=== PATIENT | male | born 1935 | race Caucasian/White ===

== ENCOUNTER 2022-06-15 14:14 | Outpatient (CLI) | payer MEDICARE, SELFPAY ==
[2022-06-15 19:15] LABS: Alanine Aminotransferase 15 U/L (6-50); Albumin Level 4.3 g/dL (3.5-5.1); Alkaline Phosphatase 45 U/L (38-126); Anion Gap 4 mmol/L (8-16); Aspartate Amino Transferase 32 U/L (17-59); Bilirubin,Total 0.9 mg/dL (0.2-1.3); Blood Urea Nitrogen 27 mg/dL (9-20); Calcium 10.1 mg/dL (8.4-10.2); Carbon Dioxide 30 mmol/L (22-30); Chloride 103 mmol/L (98-107); Estimated Glomerular Filt Rate 58; Glucose 81 mg/dL (65-110); Potassium 4.4 mmol/L (3.4-5.0); Sodium 137 mmol/L (137-145)
== END 2022-06-15 14:15 | disposition home or self-care (01) ==
LOC: ANHGOSHLAB 14:16
PROVIDERS: PCP Family Medicine; Visit Provider Family Medicine
DX: E78.5 Hyperlipidemia, unspecified (principal)
CPT/HCPCS: 36415; 80053

== ENCOUNTER 2023-09-28 07:00 | Outpatient (NON) | payer MEDICARE, SELFPAY | END 2023-09-28 07:01 | disposition home or self-care (01) | PROVIDERS: PCP Family Medicine; Visit Provider Internal Medicine Gastroenterology | DX: Z12.11 Encounter for screening for malignant neoplasm of colon (principal) | CPT/HCPCS: 88305 ==

== ENCOUNTER 2023-09-28 10:43 | Day surgery (SDC) | payer MEDICARE, SELFPAY ==
[2023-08-17 13:59] VITALS: BMI 25.0
--- NOTE | 2023-09-27 15:17 | WPDANESEPPF ---
Anes - Initial Pre Proc Eval Procedure: Operation Date: 09/28/23 12:30 Proposed Procedures p Screening Colonoscopy - Rashad Kumar MD Date/Time: 09/27/23 15:17 Surgeon: Rashad Kumar MD Pre Op Diagnosis: Neoplasm Screening Patient Data Age: 88 Gender: M Height: 1.78 m Weight: 79 kg Allergies Allergy/AdvReac Type Severity Reaction Status Date / Time No Known Allergies Allergy Verified 09/28/23 11:07 Home Medications Medication Instructions Recorded Confirmed Type dxdzcoxbqlqy-yst-ejbfp acid-vit 1 tablet PO DAILY 10/21/19 09/28/23 History K-lycop 400 mcg-20 mcg-370 mcg tablet (One-A-Day Men's 50 Plus (with vitamin K)) cholecalciferol (vitamin D3) 50 50 mcg PO DAILY 06/15/22 09/28/23 History mcg (2,000 unit) tablet cpfyywrh-ich-mlukh3 250 mg-dha 90 1 cap PO DAILY 06/15/22 09/28/23 History mg-epa 160 kl-loky-ylsh-zeax capsule (Ocuvite Adult 50 Plus) lisinopril 20 1 tablet PO DAILY #90 tabs 04/10/23 09/28/23 Rx mg-hydrochlorothiazide 12.5 mg tablet allopurinol 300 mg tablet 150 mg PO DAILY #90 tabs 08/07/23 09/28/23 Rx pravastatin 40 mg tablet 40 mg PO QHS #90 tabs 08/10/23 09/28/23 Rx sodium,potassium,mag sulfates 17.5 See Rx Instructions PO .COMPLEX 08/17/23 09/28/23 Rx gram-3.13 gram-1.6 gram oral soln #354 mL (Suprep Bowel Prep Kit) Patient hx anesthesia problems: none Family hx anesthesia problems: none Results Review: All pre-operative results and documents have been reviewed as part of the pre-operative evaluation. [facility], [facility] Past Medical History Medical History Dyslipidemia Elbow fracture 194 Essential (primary) hypertension Gout Sick sinus syndrome Sinus bradycardia Venous insufficiency of right lower extremity Vitamin D deficiency Surgical History Surgical History History of open reduction and internal fixation (ORIF) procedure Social History Social History Smoking status: Former smoker Smoking end date: 11/27/94 Alcohol intake: current Drinks per week: 3 Alcohol use details: 1 glass of wine or beer consumed occasionally Substance use: never Substance use type: does not use Lack of Transportation: No Lack of Food: Never True Current Housing: I Have Housing Concerned About Future Housing: No Difficulty Paying Gas/Electric Bills: No Difficulty Paying for Meds: No Currently Unemployed: No Education: High School Diploma/GED Living arrangements: with family Additional living arrangements comments: Occupation/Education: retired Gender identity (if verbalized by the patient): Male Sexual Orientation (if Verbalized by the Patient): Straight or Heterosexual Spiritual care concerns: No Anes - Eval Final PreProcedure Day of Procedure 09/27/23 15:17 Patient weight: normal Heart: regular rate and rhythm Lungs: clear to auscultation and normal air movement Airway: Mallampati scale class II Neurological: alert and oriented Last oral intake: >/= 8 hours ASA classification: III Emergent: no Anesthetic plan: proceed Anesthesia type and monitoring: general GIVS and standard monitoring Results Review: All pre-operative results and documents have been reviewed as part of the pre-operative evaluation. Informed Consent: The patient's anesthetic plan and its attendant risks and benefits were discussed with the patient/family/POA. Questions were solicited and answers provided to the satisfaction of the patient/family/POA.
[2023-09-28 11:08] VITALS: BP 168/96; PULSE 65; RESP 20; TEMP 37.1; O2SAT 100
[2023-09-28] MEDS: LACTATED RINGERS 1,000 ML 150 ML IV CONT (11:17)
--- NOTE | 2023-09-28 11:24 | PM.HPGS ---
History of Present Illness History of Present Illness Consent: Risks, benefits, and alternatives have been discussed and questions answered. Patient agrees to proceed with procedure. Chief complaint: Neoplasm Screening Narrative: Kody Hurtado is a 88 year old male Presents for screening colonoscopy on referral from Dr. Schaefer. Patient has a history of adenomatous colon polyp in 2014. Patient reports his current weight appetite and bowel movements are normal. Patient's family history is significant that his mother had colon cancer. Is any current bowel problems. He has no bleeding. Review of Systems Review of Systems: Review of systems is noncontributory. [facility] Past Medical History Medical History Dyslipidemia Elbow fracture 194 Essential (primary) hypertension Gout Sick sinus syndrome Sinus bradycardia Venous insufficiency of right lower extremity Vitamin D deficiency Surgical History Surgical History History of open reduction and internal fixation (ORIF) procedure Social History Social History Smoking status: Former smoker Smoking end date: 11/27/94 Alcohol intake: current Drinks per week: 3 Alcohol use details: 1 glass of wine or beer consumed occasionally Substance use: never Substance use type: does not use Lack of Transportation: No Lack of Food: Never True Current Housing: I Have Housing Concerned About Future Housing: No Difficulty Paying Gas/Electric Bills: No Difficulty Paying for Meds: No Currently Unemployed: No Education: High School Diploma/GED Living arrangements: with family Additional living arrangements comments: Occupation/Education: retired Gender identity (if verbalized by the patient): Male Sexual Orientation (if Verbalized by the Patient): Straight or Heterosexual Spiritual care concerns: No Meds Home Medications and Allergies Home Medications Medication Instructions Recorded Confirmed Type tzrrtchrrbyo-bex-lfruo acid-vit 1 tablet PO DAILY 10/21/19 09/28/23 History K-lycop 400 mcg-20 mcg-370 mcg tablet (One-A-Day Men's 50 Plus (with vitamin K)) cholecalciferol (vitamin D3) 50 50 mcg PO DAILY 06/15/22 09/28/23 History mcg (2,000 unit) tablet etrdnwwg-gks- 250 mg-dha 90 1 cap PO DAILY 06/15/22 09/28/23 History mg-epa 160 hv-lyva-iutw-zeax capsule (Ocuvite Adult 50 Plus) lisinopril 20 1 tablet PO DAILY #90 tabs 04/10/23 09/28/23 Rx mg-hydrochlorothiazide 12.5 mg tablet allopurinol 300 mg tablet 150 mg PO DAILY #90 tabs 08/07/23 09/28/23 Rx pravastatin 40 mg tablet 40 mg PO QHS #90 tabs 08/10/23 09/28/23 Rx sodium,potassium,mag sulfates 17.5 See Rx Instructions PO .COMPLEX 08/17/23 09/28/23 Rx gram-3.13 gram-1.6 gram oral soln #354 mL (Suprep Bowel Prep Kit) Allergies Allergy/AdvReac Type Severity Reaction Status Date / Time No Known Allergies Allergy Verified 09/28/23 11:07 Vital Signs Vital Signs - 24 hr 09/28/23 11:08 Temperature 98.7 F Pulse Rate 65 Respiratory Rate 20 Blood Pressure 168/96 H Pulse Oximetry 100 Oxygen Delivery Room Air Exam Narrative: Physical exam reveals patient and stable. HEENT exam is unremarkable. Patient is anicteric. Lungs are clear to auscultation and to percussion. Heart is without murmur or extra sounds. Abdomen bowel sounds are present soft nontender with no organomegaly. Digital external rectal exam is normal. Assessment and Plan Assessment and plan (1) Colon cancer screening: Code(s): Z12.11 - Encounter for screening for malignant neoplasm of colon Status: Acute Assessment and Plan: Patient presents for screening colonoscopy on referral from primary care service. He does have a history of adenomatous colon polyp in 2014.
[2023-09-28 12:00] VITALS: BP 97/58; PULSE 35; RESP 16; O2SAT 98
[2023-09-28 12:10] VITALS: BP 97/58; PULSE 40; RESP 16; O2SAT 98
[2023-09-28 12:20] VITALS: BP 169/55; PULSE 35; RESP 16; O2SAT 100
--- NOTE | 2023-09-28 12:44 | WPDANESPN ---
Anes - Prog Note Post-Op Date/Time: 09/28/23 12:44 Cardiovascular status: normal Respiratory status: normal Airway patency: baseline Mental status: baseline Post-Op hydration status: normal Vital Signs: Last Vital Signs Temp 37.1 C 09/28/23 11:08 Pulse 40 L 09/28/23 12:10 Resp 16 09/28/23 12:10 BP 97/58 L 09/28/23 12:10 Pulse Ox 98 09/28/23 12:10 O2 Del Method Room Air 09/28/23 12:10 Pain Score (VAS): 0 I/O: Intake & Output 09/27/23 09/28/23 09/28/23 23:59 07:59 15:59 Intake Total 400 Balance 400 Post-procedural complaints: none Patient Feedback: Patient satisfied with anesthetic care. Other Findings: Patient vital signs back to baseline. Patient denies nausea and vomiting. Patient's pain under control. Patient OK for discharge.
--- NOTE | 2023-09-28 12:55 | SUR.PHASEII ---
Addendum entered by Roxanna Vale RN 09/28/23 13:01: change....s/s to watch for with dizziness and to follow up... Original Note: [id number] patient returned to recovery on left side. no complaints. retrieved son from waiting room. dr came in to talk to patient and son about results. patient's heart rate varied from 30-65. pulse palpable on right wrist to verify monitor. pulse feels irregular and slow. reported to anes who confirmed that on their desk monitor intra procedure his rhythm was irregular. no afib noted. patient has a history of irregular rhythem per anes. during patient's time in recovery pulse continued to vary from 30s-60s with good pleth wave form. discussed and education given at length with son on s/s to watch for with dizziness and no follow up with primary doctor right away. patient reports to me in private that he does not have issues at home or c/o of s/s of dizzy or light headedness. patient was transported via wheel chair to son's vehicle safely.
== END 2023-09-28 12:55 | disposition home or self-care (01) ==
PROVIDERS: PCP Family Medicine; Visit Provider Internal Medicine Gastroenterology
PROC: 0DJD8ZZ Inspection of Lower Intestinal Tract, Via Natural or Artificial Opening Endoscopic (ICD-10-PCS; CPT 45378; principal; 2023-09-28 12:30)
DX: Z86.010 Personal history of colon polyps (principal); D12.2 Benign neoplasm of ascending colon; K57.30 Diverticulosis of large intestine without perforation or abscess without bleeding; K64.8 Other hemorrhoids
CPT/HCPCS: 45385

== ENCOUNTER → 2024-09-17 09:33 | Outpatient (REF) | payer MEDICARE, SELFPAY | LOC: ANHLAB 09:33 | PROVIDERS: PCP Family Medicine; Visit Provider Plastic Surgery | DX: L72.0 Epidermal cyst (principal) | CPT/HCPCS: 88305 ==

== ENCOUNTER 2025-04-18 08:05 | Outpatient (CLI) | payer MEDICARE, SELFPAY ==
--- OUTSIDE RECORDS SUMMARY | 2025-04-18 08:11 | XMS_ITS | Clinical Summary ---
Author Organization [facility] Address [address] [place] [address] Care Team Providers Care Masonry Instructor Name Role Phone Unavailable Primary Care Provider Unavailabl e Source Comments [facility],non-owned Affiliates and Associated Physician Practices is amultiple site organization consisting of ambulatory clinics and hospital sitesin [place], [place], [place] and [place]. This disclosure is being madepursuant to the Care Everywhere program and may not contain all information available regarding this patient. Last updated 18.[facility] Immunizations Immunization Administration Dates Next Due INFLUENZA VACCINE, HIGH-DOSE , QUADR. (FLUZONE HIGH-DOSE QUADRIVALENT; 65Y+), 0.7 ML (HD-IIV4) 09/14/2020 Social History Tobacco Use Types Packs/Day Years Used Date Smoking Tobacco: Never Assessed Sex and Gender Information Value Date Recorded Sex Assigned at Not on file Legal Sex Male 2:13 PM CDT Gender Identity Not on file Sexual Orientation Not on file Plan of Treatment Health Maintenance Due Date Last Done Comments DTAP/TDAP/TD VACCINES (1 - Tdap) 1955 PNEUMOCOCCAL VACCINE 50+ (1 of 1 - PCV) 1986 ZOSTER VACCINE (1 of 2) 1986 Respiratory Syncytial Virus (RSV) Vaccine Pt: or over 60 yrs (1 - 1-dose 75+ series) 2011 COVID-19 VACCINE ( - 2023-2 5 season) 2024 DEPRESSION SCREENING 11/27/2024 MEDICARE AWV CALENDAR YEAR 2024 INFLUENZA VACCINE (Season Ended) 2025 09/14/20 20 HEPATITIS B VACCINE Aged Out No longe r eligible based on patient's age to complete this topic HIB VACCINE Aged Out No longer eligi ble based on patient's age to complete this topic HPV VACCINE Aged Out No longer eligi ble based on patient's age to complete this topic MENINGOCOCCAL (Group B) VACC INE SHARED DECISION-MAKING Aged Out No longer eligibl e based on patient's age to complete this topic MENINGOCOCCAL GROUPS A/C/Y/W VACCINE Aged Out No longer eligible b ased on patient's age to complete this topic Insurance [facility] MANAGED MEDICARE ADV SELF PAY NO INSURANCE Member Subscriber Plan / Payer (Ef fective for All Dates) Name:Galindo Hurtado Member ID:Not on file Relation to Subscriber:Not on file Name:GALINDO HURTADO Subscriber ID:Not on file (Home) Address: [address] [place] [address] Payer ID:Not on file Group ID:Not on file Type:Self Pay Address: [facility] MANAGED MEDICARE ADV [employer] MANAGED MEDICARE ADV * Guarantor: GALINDO HURTADO Account Type Relation to Patient Date of Phone Billing Address Personal/Family Spouse
[2025-04-18 12:24] LABS: Basophils Absolute Auto 0.1 K/mm3 (0.0-0.1); Basophils Percent Auto 0.9 % (0.2-1.2); Eosinophils Absolute Auto 0.3 K/mm3 (0-0.3); Hematocrit 39.1 % (42.0-52.0); Hemoglobin 12.7 g/dL (14.0-18.0); Immature Granulocyte Absolute 0.03 K/mm3 (0.00-0.031); Immature Granulocyte Percent A 0.5 % (0-0.5); Lymphocytes Absolute Auto 1.72 K/mm3 (0.9-3.2); Lymphocytes Percent Auto 25.9 % (18.3-44.2); Mean Corpuscular HGB Conc 32.5 g/dl (32-36); Mean Corpuscular Hemoglobin 31.1 pg (26-34); Mean Corpuscular Volume 95.6 fl (80-100); Mean Platelet Volume 11.6 fl (7.4-10.4); Monocytes Absolute Auto 0.5 K/mm3 (0.1-0.6); Monocytes Percent Auto 7.2 % (2.6-8.5); Neutrophils Percent Auto 60.5 % (45.5-73.1); Platelet Count Result 140 k/mm3 (150-375); Red Blood Count 4.09 M/mm3 (4.6-6.20); Red Cell Distribution Width 14.6 % (11.5-14.5); White Blood Count 6.7 K/mm3 (4.5-10.0)
[2025-04-18 12:46] LABS: Alanine Aminotransferase 25 U/L (6-50); Albumin Level 4.2 g/dL (3.5-5.1); Alkaline Phosphatase 50 U/L (38-126); Anion Gap 7 mmol/L (4-12); Aspartate Amino Transferase 60 U/L (17-59); Bilirubin,Total 0.9 mg/dL (0.2-1.3); Blood Urea Nitrogen 41 mg/dL (9-20); Carbon Dioxide 28 mmol/L (22-30); Chloride 105 mmol/L (98-107); Cholesterol 138 mg/dL (0-200); Estimated Glomerular Filt Rate 55; Glucose 72 mg/dL (65-110); HDL Direct 54 mg/dL; Potassium 4.3 mmol/L (3.4-5.0); Sodium 140 mmol/L (137-145); Triglycerides 74 mg/dL (<150)
[2025-04-18 12:59] LABS: Vitamin D 25 Hydroxy 65.3 ng/mL
[2025-04-18 13:00] LABS: LDL Cholesterol Direct 54 mg/dL
[2025-04-18 13:25] LABS: Hemoglobin A1C 5.3 % (<5.7)
[2025-04-18 14:43] LABS: Free T4 Free Thyroxine Reflex 1.16 ng/dL (0.78-2.19)
== END 2025-04-18 08:06 | disposition home or self-care (01) ==
LOC: ANHGOSHLAB 08:06
PROVIDERS: PCP Family Medicine; Visit Provider Family Medicine
DX: E78.5 Hyperlipidemia, unspecified (principal); I10 Essential (primary) hypertension; M10.00 Idiopathic gout, unspecified site; D69.6 Thrombocytopenia, unspecified; Z00.00 Encounter for general adult medical examination without abnormal findings; R73.9 Hyperglycemia, unspecified; E53.8 Deficiency of other specified B group vitamins; E55.9 Vitamin D deficiency, unspecified
CPT/HCPCS: 36415; 80053; 80061; 82306; 82607; 83036; 84439; 84443; 84480; 84550; 85025

== ENCOUNTER 2025-10-24 12:32 | Emergency (ER) | payer MEDICARE, SELFPAY ==
[2025-10-24 12:43] VITALS: BP 175/80; PULSE 65; RESP 16; TEMP 36.3; O2SAT 99
--- NOTE | 2025-10-24 12:47 | ED_ITS ---
HPI - URI/Sore Throat General Chief Complaint: Upper Respiratory Infection Stated Complaint: Sinus Infection Symptoms Time Seen by Provider: 10/24/25 12:45 Source: patient Mode of arrival: ambulatory Limitations: no limitations History of Present Illness HPI Narrative: Abner is a an 89-year-old male patient presenting to the clinic today with complaints of comes sinus congestion, sinus pressure, sneezing, some chest congestion, and cough. He reports he is coughing up some green phlegm. Symptoms have been going on for over 1 week. Denies any chest pain or shortness of breath. No fevers, chills, body aches. MD elicited complaint: sore throat and nasal congestion Related Data Home Medications ?Medication ?Instructions ?Recorded ?Confirmed ?Last Taken ?Type ertphwyxjgwp-pfs-fadvi acid-vit 1 tablet PO DAILY 09/2804/17/25 09/05/23 History K-lycop 400 mcg-20 mcg-370 mcg tablet (One-A-Day Men's 50 Plus (with vitamin K)) zwlgrhvs-vuc- 250 mg-dha 90 1 cap PO DAILY 06/1504/17/25 09/05/23 History mg-epa 160 yd-anqi-wshe-zeax capsule (Ocuvite Adult 50 Plus) Allergies Allergy/AdvReac Type Severity Reaction Status Date / Time No Known Allergies Allergy Verified 10/24/25 12:47 Review of Systems Review of Systems: Pertinent positives per HPI. Patient denies any fever, chills, rash, visual changes, dizziness, shortness of breath, chest pain, palpitations, nausea, vomiting, diarrhea, constipation, abdominal pain, or any urinary issues. [facility] Past Medical History Medical History Flexion deformity, left elbow Venous insufficiency of right lower extremity Vitamin D deficiency Sinus bradycardia Elbow fracture 1943 Gout Dyslipidemia Essential (primary) hypertension Social History Social History Smoking status: Former smoker (< 5 pack years) Smoking end date: 11/27/94 Alcohol intake: current Drinks per week: 3 Alcohol use details: 1 glass of wine or beer consumed occasionally Substance use: never Substance use type: does not use Lack of Transportation: No Lack of Food: Never True Current Housing: I Have Housing Concerned About Future Housing: No Difficulty Paying Gas/Electric Bills: No Difficulty Paying for Meds: No Currently Unemployed: No Education: High School Diploma/GED Living arrangements: with family Additional living arrangements comments: Occupation/Education: retired Gender identity (if verbalized by the patient): Male Sexual Orientation (if Verbalized by the Patient): Straight or Heterosexual Spiritual care concerns: No Comments At the time of my signature, I reviewed and agree with the nursing past medical, surgical, social, and family history. There is no relevant family history pertinent to the patient complaint. Exam Narrative: General: Well-developed, well nourished, in no apparent distress Head: Normocephalic, atraumatic Eyes: Pupils equally round and reactive to light bilaterally, EOM intact, sclera and conjunctive clear, no discharge, lids normal Ears: TMs intact and congested, ear canals clear, no drainage, grossly hearing normal. Nose: Nares patent, green nasal discharge, moderate inflammation, maxillary sinus tenderness. Mouth: Oral pharynx without lesions or masses, good dentition, MMM. Postnasal drip Neck: Supple, trachea midline, no enlargement of anterior or posterior cervical nodes, no thyroid masses or goiter palpable. Cardio: Regular rate and rhythm, s1 and s2 normal, no murmur appreciated. Resp: Clear to auscultation bilaterally, no rhonchi, rales, wheezing or rubs Course Course Emergency Course: Portions of this record may have been created with voice recognition software. Level of Care: Express Care Visit Vital Signs Vital signs: Vital Signs Temperature 36.3 C L 10/24/25 12:43 Pulse Rate 65 10/24/25 12:43 Respiratory Rate 16 10/24/25 12:43 Blood Pressure 175/80 H 10/24/25 12:43 Pulse Oximetry 99 10/24/25 12:43 Temperature 36.3 C L 10/24/25 12:43 Pulse Rate 65 10/24/25 12:43 Respiratory Rate 16 10/24/25 12:43 Blood Pressure 175/80 H 10/24/25 12:43 Pulse Oximetry 99 10/24/25 12:43 Vital signs reviewed MDM - URI/Sore Throat MDM Narrative Medical decision making narrative: At the time of visit patient is resting comfortably on the exam table. Patient appears to be nontoxic. Complaints of comes sinus congestion, sinus pressure, sneezing, some chest congestion, and cough. He reports he is coughing up some green phlegm. Symptoms have been going on for over 1 week. Denies any chest pain or shortness of breath. No fevers, chills, body aches. On exam patient has bilateral TMs intact, mild bulging, and congested, green nasal drainage with moderate anterior turbinate inflammation, maxillary tenderness, oropharynx red with postnasal drip, lung sounds are clear, heart rates regular rate rhythm. Plan: I suspect patient has acute bacterial rhinosinusitis. Prescription for Augmentin was sent to the pharmacy. Supportive measures were discussed with the patient and they voiced understanding discharge instructions and agrees to treatment plan. Return precautions reviewed Differential Diagnosis Differential diagnosis: Likely upper respiratory infection, otitis media, sinusitis, viral infection, bronchitis, influenza, pharyngitis and other (COVID) Discharge Plan Discharge Clinical Impression: Acute bacterial rhinosinusitis Patient Disposition: Home Condition: Stable Instructions: Antibiotic Form, Sinusitis (ED) Additional Instructions: Take prescription medications only as prescribed-Augmentin Increase fluids and stay well hydrated May take Tylenol or motrin as directed on bottle for pain/fever May use Flonase 1 spray in each nare daily May take OTC antihistamines such as Zyrtec or Claritin daily as directed on bottle May apply Vicks vapor rub to chest to open sinuses Sinus rinses for congestion Cepacol spray, cough drops, throat lozenges, warm tea with honey/lemon, gargle salt water to soothe throat BRAT diet for diarrhea Clear liquids x 24 hours then advance as tolerated for nausea/vomiting Go to the ED if you develop a worsening in your condition- high fever not controlled by Tylenol or Motrin, dehydration, weakness, lethargy, shortness of breath, or chest pain. Follow up with your PCP in 3-5 days if symptoms persist. Patient Language: Moldovan Prescriptions: New amoxicillin-pot clavulanate 875-125 mg tablet 1 tablet PO Q12H 7 Days Qty: 14 0RF No Action Ocuvite Adult 50 Plus 250 mg (90 mg-160 mg) capsule 1 cap PO DAILY atorvastatin 40 mg tablet 40 mg PO QHS Qty: 90 2RF lisinopril-hydrochlorothiazide 20-12.5 mg tablet 2 tablet PO DAILY Qty: 180 2RF One-A-Day Men's 50 Plus(vit K) 400-20-370 mcg tablet 1 tablet PO DAILY Follow-up/Referrals: Freda Schaefer MD [Primary Care Provider, [facility]] Time of Disposition: 12:47 Quality NIHSS Nursing Documentation ED NIHSS nursing documentation: reviewed/agree
== END 2025-10-24 12:50 | disposition home or self-care (01) ==
PROVIDERS: Emergency Provider Nurse Practitioner Family; PCP Family Medicine
DX: J01.90 Acute sinusitis, unspecified (principal); I10 Essential (primary) hypertension; E78.5 Hyperlipidemia, unspecified; M10.9 Gout, unspecified; Z87.891 Personal history of nicotine dependence
CPT/HCPCS: 99213; G0463

== ENCOUNTER 2025-11-03 15:25 | Outpatient (CLI) | payer MEDICARE, SELFPAY ==
[2025-11-03 18:52] LABS: Hematocrit 39.7 % (42.0-52.0); Hemoglobin 13.1 g/dL (14.0-18.0); Immature Granulocyte Percent A 0.2 % (0-0.5); Immature Platelet Fraction Pct 5.5 % (0.9-11.2); Lymphocytes Absolute Auto 1.66 K/mm3 (0.9-3.2); Mean Corpuscular HGB Conc 33.0 g/dl (32-36); Mean Corpuscular Hemoglobin 30.7 pg (26-34); Mean Corpuscular Volume 93.0 fl (80-100); Nucleated Red Blood Cells Absolute Auto 0.000 K/mm3 (0.0-0.012); Nucleated Red Blood Cells Perc 0.0 % (0.0-0.2); Platelet Count Result 129 k/mm3 (150-375); Red Blood Count 4.27 M/mm3 (4.6-6.20); White Blood Count 8.3 K/mm3 (4.5-10.0)
[2025-11-03 19:03] LABS: Alanine Aminotransferase 23 U/L (6-50); Albumin Level 4.3 g/dL (3.5-5.1); Alkaline Phosphatase 46 U/L (38-126); Anion Gap 5 mmol/L (4-12); Aspartate Amino Transferase 31 U/L (17-59); Bilirubin,Total 0.7 mg/dL (0.2-1.3); Blood Urea Nitrogen 61 mg/dL (9-20); Calcium 10.7 mg/dL (8.4-10.2); Carbon Dioxide 28 mmol/L (22-30); Chloride 107 mmol/L (98-107); Estimated Glomerular Filt Rate 43; Glucose 90 mg/dL (65-110); Potassium 5.1 mmol/L (3.4-5.0); Sodium 140 mmol/L (137-145); Total Protein 7.0 g/dL (6.3-8.2)
[2025-11-03 19:22] LABS: Iron 59 ug/dL (49-181)
[2025-11-03 19:34] LABS: Percent Iron Saturation 24 % (20-50)
[2025-11-03 20:02] LABS: Thyroid Stimulating Hormone Reflex 2.570 uIU/mL (0.465-4.68)
[2025-11-03 20:06] LABS: Ferritin 136.00 ng/mL (11.1-264)
== END 2025-11-03 15:26 | disposition home or self-care (01) ==
LOC: ANHGOSHLAB 15:26
PROVIDERS: PCP Family Medicine; Visit Provider Family Medicine
DX: D64.9 Anemia, unspecified (principal); I10 Essential (primary) hypertension
CPT/HCPCS: 36415; 80053; 82728; 83540; 83550; 84443; 85025; 85055

== ENCOUNTER 2025-11-11 11:21 | Outpatient (CLI) | payer MEDICARE, SELFPAY ==
--- OUTSIDE RECORDS SUMMARY | 2025-11-11 13:42 | XMS_ITS | Clinical Summary ---
Author Organization [facility] Address [address] [place] [address] Care Team Providers Care Machine Setter And Repairer Name Role Phone Unavailable Primary Care Provider Unavailabl e Source Comments [facility],non-owned Affiliates and Associated Physician Practices is amultiple site organization consisting of ambulatory clinics and hospital sitesin [place], [place], [place] and [place]. This disclosure is being madepursuant to the Care Everywhere program and may not contain all information available regarding this patient. Last updated 18.[facility] Immunizations Immunization Administration Dates Next Due INFLUENZA [...] yrs (1 - 1-dose 75+ series) 2011 DEPRESSION SCREENING 11/27/2024 MEDICARE AWV CALENDAR YEAR 2024 COVID-19 VACCINE ( - 2024-2 6 season) 2025 INFLUENZA VACCINE (#1) 2025 09/14/2020 HEPATITIS B VACCINE Aged Out No longe [...] patient's age to complete this topic Insurance [facility] MANAGED MEDICARE ADV SELF PAY NO INSURANCE Member Subscriber Plan / Payer (Ef fective for All Dates) Name:Galindo Hurtado Abimael Member ID:Not on file Relation to Subscriber:Not on file Name:GALINDO HURTADO Subscriber ID:Not on file (Home) Address: [address] [place] [address] Payer ID:Not on file Group ID:Not on file Type:Self Pay Address: [facility] MANAGED MEDICARE ADV UHC MANAGED MEDICARE ADV * Guarantor: GALINDO HURTADO Account Type Relation to Patient Date of Phone Billing Address Personal/Family Spouse
[2025-11-11 19:21] LABS: Anion Gap 5 mmol/L (4-12); Blood Urea Nitrogen 42 mg/dL (9-20); Calcium 10.3 mg/dL (8.4-10.2); Carbon Dioxide 29 mmol/L (22-30); Chloride 103 mmol/L (98-107); Estimated Glomerular Filt Rate 53; Glucose 78 mg/dL (65-110); Potassium 5.1 mmol/L (3.4-5.0); Sodium 137 mmol/L (137-145)
== END 2025-11-11 11:22 | disposition home or self-care (01) ==
LOC: ANHGOSHLAB 11:21
PROVIDERS: PCP Family Medicine; Visit Provider Family Medicine
DX: N18.31 Chronic kidney disease, stage 3a (principal); E83.52 Hypercalcemia
CPT/HCPCS: 36415; 80048